=== PATIENT | female | born 1970 | race Caucasian/White ===

== ENCOUNTER 2022-10-21 13:37 | Emergency (ER) | payer OTHER, SELFPAY ==
[2022-10-21 13:46] VITALS: BP 164/88; PULSE 87; RESP 16; TEMP 36.7; O2SAT 100
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
== END 2022-10-21 14:30 | disposition home or self-care (01) ==
PROVIDERS: Emergency Provider Registered Nurse
DX: J06.9 Acute upper respiratory infection, unspecified (principal); L25.9 Unspecified contact dermatitis, unspecified cause; E03.9 Hypothyroidism, unspecified; M32.9 Systemic lupus erythematosus, unspecified; F41.9 Anxiety disorder, unspecified
CPT/HCPCS: 99213; G0463